=== PATIENT | male | born 1985 | race Two or more races ===

== ENCOUNTER 2020-02-08 17:31 | Inpatient (IN) | payer MEDICAID, OTHER ==
[~2020-02-08] VITALS: Ht 165.1 cm; Wt 97.8 kg
[2020-02-08] MEDS ORDERED: SODIUM CHLORIDE 0.9% 1,000 ML IVB ONE (17:58)
[2020-02-08 18:00] LABS: Basophils # (auto) 0 10 ^3/uL (0-0.2); Basophils % (auto) 0.3 % (0.0-2.0); Eosinophils # (auto) 0 10 ^3/uL (0-0.8); Eosinophils % (auto) 0.3 % (0.0-7.0); Hematocrit 45.2 % (41.0-53.0); Hemoglobin 15.5 g/dL (13.5-17.5); Lymphocytes # (auto) 1.4 10 ^3/uL (0.4-5.4); Lymphocytes % (auto) 10.2 % (10.0-50.0); Mean Corpuscular Hemoglobin 32.3 pg (28.0-32.0); Mean Corpuscular Hgb Conc. 34.3 g/dL (32.0-36.0); Mean Corpuscular Volume 94.1 fL (80.0-100.0); Monocytes # (auto) 0.6 10 ^3/uL (0-1.3); Monocytes % (auto) 4.3 % (0.0-12.0); Neutrophils # (auto) 11.3 10 ^3/uL (1.6-8.6); Neutrophils % (auto) 84.9 % (37.0-80.0); Platelet Count (auto) 274 10^3/uL (140-450); Red Cell Distribution Width 13.4 % (11.8-14.3); White Blood Cell 13.3 10^3/uL (4.4-10.8)
[2020-02-08] MEDS ORDERED: MORPHINE SULFATE 4 MG/ML SYR/VIAL IV ONE (18:00)
[2020-02-08] MEDS ORDERED: ONDANSETRON HCL 4 MG/2 ML VIAL IV ONE (18:00)
[2020-02-08] MEDS ORDERED: KETOROLAC TROMETH 15 mg/ml 1ML VL IV ONE (18:00)
[2020-02-08] MEDS ORDERED: KETOROLAC TROMETH 30 MG/ML 1ML VIAL ONE (18:12)
[2020-02-08 18:38] LABS: Albumin 3.6 g/dL (3.4-5.0); Calcium 8.6 mg/dL (8.5-10.1)
[2020-02-08 18:41] LABS: Bilirubin, Total 0.4 mg/dL (0.2-1.0); Total Protein 7.7 g/dL (6.4-8.2)
[2020-02-08 20:14] LABS: Urine Bacteria FEW /hpf (None Seen); Urine Blood 2+ /uL (Negative); Urine Mucus FEW (None Seen); Urine Specific Gravity 1.031 (1.001-1.035); Urine WBC 4 /hpf (0 - 3)
[2020-02-08] MEDS ORDERED: DOCUSATE SOD 100 MG CAP PO PRN (20:45)
[2020-02-08] MEDS ORDERED: ACETAMINOPHEN 325 MG TAB PO PRN (20:45)
[2020-02-08] MEDS ORDERED: HYDROcodone-ACET 5/325MG TAB PO PRN (20:45)
--- NOTE | 2020-02-08 21:38 | NUR ---
MS admit from ER SACHIN FOY admitted to tele/MS after SBAR received. Patient oriented to Emily Mckinney, primary RN, unit, room, bed, and unit policies regarding patient care and visiting hours. Patient weighed by bedscale and encouraged to call if they need something. All questions and concerns addressed, patient verbalized understanding.
[2020-02-08 21:45] VITALS: BP 136/75
[2020-02-08 21:50] VITALS: BP 136/75
[2020-02-08] MEDS: TAMSULOSIN HYDROCHLORIDE 0.4 MG CAP PO SCH (22:20)
[2020-02-08] MEDS: FINASTERIDE 5 MG TAB PO SCH (22:20)
[2020-02-08] MEDS: MORPHINE SULFATE 4 MG/ML SYR/VIAL IV PRN (22:20)
[2020-02-08] MEDS: SODIUM CHLORIDE 0.9% 1,000 ML IV SCH (22:37)
[2020-02-09] MEDS: SODIUM CHLORIDE 0.9% 1,000 ML IV SCH ×5 (03:45→22:39)
[2020-02-09] MEDS: MORPHINE SULFATE 4 MG/ML SYR/VIAL IV PRN ×4 (04:03→20:20)
[2020-02-09 05:32] VITALS: BP 152/98
[2020-02-09 06:19] LABS: Basophils # (auto) 0 10 ^3/uL (0-0.2); Basophils % (auto) 0.3 % (0.0-2.0); Eosinophils # (auto) 0 10 ^3/uL (0-0.8); Hematocrit 42.5 % (41.0-53.0); Hemoglobin 14.7 g/dL (13.5-17.5); Lymphocytes # (auto) 1.1 10 ^3/uL (0.4-5.4); Lymphocytes % (auto) 8.6 % (10.0-50.0); Mean Corpuscular Hemoglobin 32.7 pg (28.0-32.0); Mean Corpuscular Hgb Conc. 34.5 g/dL (32.0-36.0); Mean Corpuscular Volume 94.7 fL (80.0-100.0); Monocytes # (auto) 0.7 10 ^3/uL (0-1.3); Neutrophils # (auto) 10.6 10 ^3/uL (1.6-8.6); Neutrophils % (auto) 85.1 % (37.0-80.0); Platelet Count (auto) 231 10^3/uL (140-450); Red Blood Cells 4.49 10^6/uL (4.5-5.90); Red Cell Distribution Width 13.5 % (11.8-14.3); White Blood Cell 12.5 10^3/uL (4.4-10.8)
[2020-02-09 06:42] LABS: Calcium 7.8 mg/dL (8.5-10.1); Potassium 4.2 mmol/L (3.5-5.1)
[2020-02-09 06:46] LABS: BUN/Creatinine Ratio 7.6
--- NOTE | 2020-02-09 07:33 | NUR ---
Care endorsed to Enedelia MACEDO.
--- NOTE | 2020-02-09 07:37 | NUR ---
Opening Shift Note Assumed care of patient. Patient is awake, alert, and oriented X 4. No S/S of respiratory distress/SOB, nausea, or vomiting reported or noted. patient reports R. lank pain and states he tolerates this level of pain. Bed in lower position, brakes locked, call light within reach. Patient is instructed on POC and to call for assistance PRN. Will continue to monitor for changes Q1hr and PRN.
[2020-02-09 08:00] VITALS: BP 152/87
[2020-02-09] MEDS: FINASTERIDE 5 MG TAB PO SCH (09:40)
[2020-02-09] MEDS: TAMSULOSIN HYDROCHLORIDE 0.4 MG CAP PO SCH (09:40)
--- NOTE | 2020-02-09 09:45 | NUR ---
Pt reported pain on lt lateral abdomen and lt lower back pain 9/, pt requested pain medication, will medicate pt as order.
--- NOTE | 2020-02-09 10:15 | NUR ---
Pain reassessment Pt reports pain level of 4/10, will continue to monitor pt.
[2020-02-09] MEDS ORDERED: levoFLOXacin 500 MG TAB PO ONE (11:45)
[2020-02-09 12:00] VITALS: BP 130/70
--- NOTE | 2020-02-09 12:27 | NUR ---
Tj / urology at unit to see pt, doctor discussed the plan of care with pt.
[2020-02-09] MEDS ORDERED: MANNITOL FTV 25% 12.5 GM/50 ML 50 ML IV ONE (12:45)
--- NOTE | 2020-02-09 13:48 | NUR ---
Pain assessment Patient reports L. flank pain 9 out of 10. Patient will be medicated per Dr's order.
--- NOTE | 2020-02-09 14:35 | NUR ---
Pain reassessment Pain level reassessed. Patient states his L.flank pain as 5 out of 10. Will continue to monitor.
[2020-02-09 16:57] VITALS: BP 142/89
[2020-02-09] MEDS: ONDANSETRON HCL 4 MG/2 ML VIAL IV PRN (16:59)
--- NOTE | 2020-02-09 20:00 | NUR ---
Opening Shift Note Assumed care of patient, awake and alert, oriented x 4, clear speech, follows direction. On room air with even and unlabored respirations, no S/S of distress/SOB. Patient reports no problems voiding. PIV left hand intact and patent.Patient turns independently in bed and ambulates with steady gait. Bed in lowest locked position with side rails up x 2 and call light within reach. Instructed on POC to strain all urine, IVF, and pain management, patient verbalized understanding. Instructed to call for assist PRN, will continue to monitor for changes Q1hr and PRN.
[2020-02-09 21:47] VITALS: BP 147/85
--- NOTE | 2020-02-10 00:45 | NUR ---
Rounds Patient resting in bed with eyes closed, noted chest rise and fall, respiration, even and unlabored. No s/s of distress. IV intact and patent infusing IVF per orders. Bed in lowest locked position with side rails up x 2 and call light within reach. Will continue to monitor.
[2020-02-10] MEDS: SODIUM CHLORIDE 0.9% 1,000 ML IV SCH ×5 (02:38→23:08)
[2020-02-10 05:00] VITALS: BP 150/86
[2020-02-10] MEDS: MORPHINE SULFATE 4 MG/ML SYR/VIAL IV PRN ×4 (06:43→21:05)
--- NOTE | 2020-02-10 06:50 | NUR ---
Closing Note patient resting in bed with even and unlabored respirations, no s/s of distress. IV intact and patent infusing IVF per orders. Bed in lowest locked position with side rails up x 2 and call light within reach.
--- NOTE | 2020-02-10 07:14 | NUR ---
Endorsed care to dayshift REMINGTON Del Valle
[2020-02-10 08:24] VITALS: BP 150/74
[2020-02-10] MEDS: TAMSULOSIN HYDROCHLORIDE 0.4 MG CAP PO SCH (09:33)
[2020-02-10] MEDS: levoFLOXacin 500 MG TAB PO SCH (09:33)
[2020-02-10] MEDS: FINASTERIDE 5 MG TAB PO SCH (09:33)
[2020-02-10] MEDS: ONDANSETRON HCL 4 MG/2 ML VIAL IV PRN ×3 (11:14→21:05)
[2020-02-10] MEDS ORDERED: MAGNESIUM CITRATE SOLUTION 300 ML BTL PO ONE (11:15)
[2020-02-10 11:35] LABS: Basophils # (auto) 0 10 ^3/uL (0-0.2); Basophils % (auto) 0.2 % (0.0-2.0); Eosinophils # (auto) 0 10 ^3/uL (0-0.8); Eosinophils % (auto) 0.1 % (0.0-7.0); Hematocrit 40.8 % (41.0-53.0); Hemoglobin 14.2 g/dL (13.5-17.5); Lymphocytes # (auto) 0.9 10 ^3/uL (0.4-5.4); Lymphocytes % (auto) 7.5 % (10.0-50.0); Mean Corpuscular Hgb Conc. 34.8 g/dL (32.0-36.0); Mean Corpuscular Volume 94.7 fL (80.0-100.0); Monocytes # (auto) 0.9 10 ^3/uL (0-1.3); Monocytes % (auto) 7.6 % (0.0-12.0); Neutrophils # (auto) 9.8 10 ^3/uL (1.6-8.6); Neutrophils % (auto) 84.6 % (37.0-80.0); Platelet Count (auto) 211 10^3/uL (140-450); Red Cell Distribution Width 13.4 % (11.8-14.3); White Blood Cell 11.5 10^3/uL (4.4-10.8)
[2020-02-10 11:53] LABS: BUN/Creatinine Ratio 6.6; Calcium 7.9 mg/dL (8.5-10.1); Potassium 3.8 mmol/L (3.5-5.1)
[2020-02-10 11:59] LABS: INR 1.04 (0.9-1.15); Partial Thromboplastin Time 30.8 sec (23.64-32.05)
[2020-02-10 13:05] VITALS: BP 150/90
--- NOTE | 2020-02-10 16:14 | NUR ---
Pt is currently listed as having no current insurance. Pt is unemployed at this time. Discussed with pt eligibility options for medical coverage based on their current situation. Pt referred to Bayron Chacon, [facility] Vehicle Monitor Technician to assist with process for [facility] coverage. Advised pt that additional information regarding D/C planning would be provided prior to their discharge. Will follow up with Bayron regarding the insurance status. Addendum: 02/10/20 at 1637 by GARY ROBERTS SS Amended: Links added.
[2020-02-10 17:26] VITALS: BP 144/77
--- NOTE | 2020-02-10 19:00 | NUR ---
OPENING NOTE Received report from day shift RN. Patient is currently resting in bed with no s/s of distress or discomfort. Bed is in lowest/locked position with side rails up X's 2 and call light is within reach of patient. Will continue care.
--- NOTE | 2020-02-10 21:09 | NUR ---
ELEVATED TEMP temp at 100.2. Started cooling measures. Some blankets were removed and ice packs given to patient. Will reassess
--- NOTE | 2020-02-10 21:35 | NUR ---
PAIN REASSESSMENT Patient reports lower abdominal pain decreased to a 3. Patient is in bed with no s/s of distress or discomfort.
[2020-02-10 21:49] VITALS: BP 135/76
--- NOTE | 2020-02-10 21:59 | NUR ---
TEMPERATURE REASSESSMENT 98.5 AFTER COOLING MEASURES
[2020-02-11] MEDS: ONDANSETRON HCL 4 MG/2 ML VIAL IV PRN (02:02)
[2020-02-11] MEDS: MORPHINE SULFATE 4 MG/ML SYR/VIAL IV PRN (02:02)
--- NOTE | 2020-02-11 02:45 | NUR ---
PAIN REASSESSMENT Patient is resting in bed with no s/s of discomfort. Will continue care.
[2020-02-11 05:22] VITALS: BP 130/74
[2020-02-11] MEDS: SODIUM CHLORIDE 0.9% 1,000 ML IV SCH ×3 (05:28→13:31)
--- NOTE | 2020-02-11 06:20 | NUR ---
ROUNDS Patient is in bed with no s/s of distress. Patient rated pain at a 2 and is comfortable at this time. Provided patient with water and juice. will continue care.
[2020-02-11 06:40] LABS: Basophils # (auto) 0 10 ^3/uL (0-0.2); Basophils % (auto) 0.2 % (0.0-2.0); Eosinophils # (auto) 0 10 ^3/uL (0-0.8); Eosinophils % (auto) 0.2 % (0.0-7.0); Hematocrit 40.3 % (41.0-53.0); Hemoglobin 14.1 g/dL (13.5-17.5); Lymphocytes # (auto) 1.7 10 ^3/uL (0.4-5.4); Lymphocytes % (auto) 17.1 % (10.0-50.0); Mean Corpuscular Hemoglobin 33.1 pg (28.0-32.0); Mean Corpuscular Hgb Conc. 35.1 g/dL (32.0-36.0); Mean Corpuscular Volume 94.4 fL (80.0-100.0); Monocytes # (auto) 0.8 10 ^3/uL (0-1.3); Neutrophils # (auto) 7.5 10 ^3/uL (1.6-8.6); Neutrophils % (auto) 74.5 % (37.0-80.0); Nucleated Red Blood Cells % 0.1 %; Platelet Count (auto) 208 10^3/uL (140-450); Red Blood Cells 4.26 10^6/uL (4.5-5.90); Red Cell Distribution Width 13.3 % (11.8-14.3)
[2020-02-11 06:59] LABS: Potassium 3.7 mmol/L (3.5-5.1)
[2020-02-11 07:06] LABS: Albumin 2.8 g/dL (3.4-5.0); Bilirubin, Total 0.7 mg/dL (0.2-1.0); Calcium 7.8 mg/dL (8.5-10.1); Total Protein 6.9 g/dL (6.4-8.2)
[2020-02-11 09:00] VITALS: BP 126/68
[2020-02-11] MEDS: levoFLOXacin 500 MG TAB PO SCH (09:12)
[2020-02-11] MEDS: TAMSULOSIN HYDROCHLORIDE 0.4 MG CAP PO SCH (09:12)
[2020-02-11 13:16] VITALS: BP 126/68
--- NOTE | 2020-02-11 14:00 | NUR ---
Discharge instructions given as ordered. Encourage to follow up with PMD IN 1-2 WEEKS, patient does not have insurance, Maame myers provided all info to the patient for PCP as instructed. All questions and concerns addressed. Patient verbalized understanding. Medication reconciliation form completed and copy given to patient. Home medications held in Pharmacy returned to patient, and needed vaccines given. IV removed with catheter intact, pressure dressing applied. Patient taken to vehicle via wheelchair with all personal belongings, accompanied by staff and family member. No distress noted at time of departure.
== END 2020-02-11 14:00 | disposition home or self-care (01) | DRG 690 ==
LOC: EDBD 17:31 → ER 17:31 → OVERFLOW 17:32 → WEST WING 21:45
PROVIDERS: ADMIT Hospitalist; ATTEND Family Medicine
DX: N13.6 Pyonephrosis (principal); E86.0 Dehydration; K80.20 Calculus of gallbladder without cholecystitis without obstruction; Z83.3 Family history of diabetes mellitus; Z87.442 Personal history of urinary calculi; Z87.891 Personal history of nicotine dependence; Z79.899 Other long term (current) drug therapy
CPT/HCPCS: 36415; 74176; 76775; 80048; 80053; 81001; 85025; 85610; 85730; G0378; J1885; J2405

== ENCOUNTER → 2020-02-12 | Emergency (ER) | payer MEDICAID | END | disposition left against medical advice (07) | LOC: ER 01:27 | DX: R10.9 Unspecified abdominal pain (principal); Z53.21 Procedure and treatment not carried out due to patient leaving prior to being seen by health care provider ==

== ENCOUNTER → 2020-02-12 | Emergency (ER) | payer SELFPAY ==
[~2020-02-12] VITALS: Ht 167.6 cm; Wt 95.3 kg
[~2020-02-12] MED LIST: KETOROLAC TROMETH 60MG/2ML VIAL IM ONE
[2020-02-12 02:38] VITALS: BP 153/92
[2020-02-12 03:40] LABS: Urine Bacteria NONE SEEN /hpf (None Seen); Urine Blood 2+ /uL (Negative); Urine Mucus FEW (None Seen); Urine Specific Gravity 1.026 (1.001-1.035); Urine WBC 4 /hpf (0 - 3)
== END | disposition home or self-care (01) ==
LOC: ER 02:31
DX: N20.9 Urinary calculus, unspecified (principal); K80.20 Calculus of gallbladder without cholecystitis without obstruction; Z87.891 Personal history of nicotine dependence
CPT/HCPCS: 81001; 96372; 99283; J1885